=== PATIENT | male | born 1950 | race Caucasian/White ===

== ENCOUNTER 2018-02-19 06:25 | Emergency (ER) | payer MEDICARE, OTHER ==
[2018-02-19] MEDS ORDERED: Magnesium Citrate 300 ML BOT ONE (06:51)
== END 2018-02-19 07:20 | disposition home or self-care (01) ==
LOC: MADERS 06:25
DX: K59.00 Constipation, unspecified (principal); E78.5 Hyperlipidemia, unspecified; J44.9 Chronic obstructive pulmonary disease, unspecified
CPT/HCPCS: 99283

== ENCOUNTER 2018-10-10 17:16 | Emergency (ER) | payer MEDICARE, OTHER ==
[2018-10-10] MEDS ORDERED: Lidocaine 1% 20 ML MDV ONE (17:29)
[2018-10-10] MEDS ORDERED: Triple Antibiotic Oint 1 GM Packet ONE ×2 (17:47→17:58)
== END 2018-10-10 18:08 | disposition home or self-care (01) ==
LOC: MADERS 17:16
DX: S61.012A Laceration without foreign body of left thumb without damage to nail, initial encounter (principal); E78.5 Hyperlipidemia, unspecified; J44.9 Chronic obstructive pulmonary disease, unspecified; W26.0XXA Contact with knife, initial encounter
CPT/HCPCS: 12001; J2001